=== PATIENT | female | born 1940 | race Caucasian/White ===

== ENCOUNTER 2018-09-20 05:36 | Inpatient (IN) | payer OTHER ==
[2018-09-13 13:00] LABS: HEMATOCRIT 37.3 % (37.0-47.0); HEMOGLOBIN 12.7 gm/dL (12.0-15.0); MCH 30.7 pg (26.0-34.0); MCV 90.3 fL (80.0-100.0); RBC 4.14 mil/uL (4.20-5.00); RDW 12.7 % (10.5-14.5); WBC 6.3 thou/uL (4.0-11.0)
[2018-09-13 13:11] LABS: URINE BILIRUBIN NEGATIVE (Negative); URINE BLOOD NEGATIVE (Negative); URINE CLARITY CLEAR; URINE COLOR YELLOW; URINE GLUCOSE-RANDOM* NEGATIVE (Negative); URINE KETONES NEGATIVE (Negative); URINE LEUKOCYTES-REFLEX NEGATIVE (Negative); URINE NITRITE-REFLEX NEGATIVE (Negative); URINE PROTEIN (DIPSTICK) NEGATIVE (Negative); URINE UROBILINOGEN 0.2 E.U./dl (0.2-1.0)
[2018-09-13 13:16] LABS: ALBUMIN 4.3 g/dL (3.4-5.0); CALCIUM 9.8 mg/dL (8.5-10.1); CREATININE 1.2 mg/dL (0.6-1.0); POTASSIUM 5.2 mmol/L (3.5-5.1)
[~2018-09-20] VITALS: Ht 144.8 cm; Wt 54.4 kg
--- NOTE | ~2018-09-20 | O ---
[facility] [place] [address] OPERATIVE REPORT Name: CLAUDE RUIZ Room #: 422-P ADM IN M.R.#: [id number] Admission: 09/20/18 Attend Phys: Dominic Marshall MD Discharge: Date of : 36 Report #: [id number] THIS REPORT FOR: //name// CC: Dominic Howell DATE OF SERVICE: 09/20/2018 PREOPERATIVE DIAGNOSIS: End-stage degenerative osteoarthritis, right hip. POSTOPERATIVE DIAGNOSIS: End-stage degenerative osteoarthritis, right hip. PROCEDURE: Right total hip arthroplasty. SURGEON: Dominic Marshall M.D. INDICATIONS: This slender, fit, active 78-year-old female complains of severe progressive right hip pain and limited range of motion. Clinical exam and x-rays confirm rather severe end-stage degenerative osteoarthritis. She has elected to go ahead with total hip arthroplasty. DESCRIPTION OF PROCEDURE: The patient was taken to the operating room, where she was placed under general anesthesia. Prophylactic intravenous antibiotics were administered. She was turned to the left lateral decubitus position. The right hip and thigh were meticulously prepped and draped. A slightly curving posterolateral skin incision was made centered over the greater trochanter. This was carried through subcutaneous tissues and fascia of the gluteus was split bluntly. The posterior aspect of the hip was visualized. The short external rotators and capsule were taken down and tagged with several #1 Tevdek sutures. The hip was dislocated and marked degenerative change on both the femoral head and acetabulum was noted. A femoral neck osteotomy was performed and the canal was prepared using the [employer]hew hip system. A size 13 press-fit Synergy femoral component trial seemed to fit quite nicely. The trial components were removed and attention directed to the acetabulum. The acetabulum was sequentially reamed, gradually advancing to a 50-mm diameter reamer. A [employer] Nephew size 50 outside diameter StikTite shell was then inserted, placing this in alignment with her true acetabulum, which positioned this in about 45 degrees off of vertical and about 20 degrees of anteversion. The cup seated nicely and appeared to be generally secure. In addition, a screw was placed through the superior hole in the shell, engaging good periacetabular bone. This resulted in excellent additional stability. A polyethylene liner was then inserted with the 20-degree elevated rim placed at about the 10 o'clock posterior position. The [employer] Nephew size 13 Synergy femoral component was [facility] [address] [place] [address] OPERATIVE REPORT Name: CLAUDE RUIZ Room #: 422-P [facility] IN M.R.#: [id number] Admission: 09/20/18 Attend Phys: Dominic Marshall MD Discharge: Date of : 36 Report #: [id number] then impacted into the canal, positioning this in about 15 degrees of anteversion. It seated nicely and appeared to be secure. A trial reduction was performed and the hip seemed best suited for a +4 mm neck length. This resulted in good mormon of leg length, satisfactory alignment and stability, without significant impingement. The size 32 mm head with a +4 mm neck length was selected. This was impacted onto the Rao taper and seated nicely. The hip was reduced. Alignment, range of motion, stability and leg lengths were once again assessed and felt to be satisfactory. The short external rotators were then repaired back to the greater trochanter using several #1 Tevdek sutures passed through small drill holes in the bone. A single Hemovac was left deep to the fascia exiting through a separate stab incision. The fascia was then closed with multiple #1 Vicryl sutures. The subcutaneous tissues were closed with 2-0 Monocryl. The skin was closed with skin thania. A sterile dressing was applied. The patient was awakened and returned to recovery room in good condition. <ELECTRONICALLY SIGNED> By: Dominic Marshall MD 09/21/18 [id number] Dominic Marshall MD /nt
[~2018-09-20 05:36] MED LIST: ASPIR 8181 M1 PO; BIOTIN5000 MC1 PO; CALCIUM 500 +1 EAC5 PO; CBD OIL PO; CENTRUM SILVER1 EAC4 PO; CO Q-10300 MG PO; FISH OIL 1,4001 EACH PO; LOSARTAN POTAS100 MG PO; NORVASC5 MG PO; OMEPRAZOLE 20 M20 M1 PO; SYNTHROID88 MCG PO; TURMERIC500 M2 PO
[2018-09-20 12:36] VITALS: BP 153/68
[2018-09-20 13:06] VITALS: BP 137/62
[2018-09-20 17:20] VITALS: BP 110/46
[2018-09-20 19:48] VITALS: BP 108/47
[2018-09-21 05:00] VITALS: BP 130/53
[2018-09-21 06:01] LABS: HEMATOCRIT 25.7 % (37.0-47.0); HEMOGLOBIN 8.9 gm/dL (12.0-15.0); MCH 31.5 pg (26.0-34.0); MCHC 34.5 g/dL (28.0-37.0); MCV 91.4 fL (80.0-100.0); RBC 2.82 mil/uL (4.20-5.00); RDW 13.2 % (10.5-14.5); WBC 7.8 thou/uL (4.0-11.0)
[2018-09-21 08:00] VITALS: BP 125/56
[2018-09-21 15:08] VITALS: BP 152/72
[2018-09-21 19:58] VITALS: BP 154/70
[2018-09-22 05:11] VITALS: BP 128/47
[2018-09-22 05:41] LABS: HEMATOCRIT 24.2 % (37.0-47.0); HEMOGLOBIN 8.4 gm/dL (12.0-15.0); MCH 31.2 pg (26.0-34.0); MCHC 34.9 g/dL (28.0-37.0); MCV 89.6 fL (80.0-100.0); RBC 2.7 mil/uL (4.20-5.00); RDW 12.8 % (10.5-14.5); WBC 8.4 thou/uL (4.0-11.0)
[2018-09-22 08:12] VITALS: BP 174/65
[2018-09-22 13:04] VITALS: BP 120/45
[2018-09-22 14:35] LABS: CALCIUM 8.1 mg/dL (8.5-10.1); MAGNESIUM 1.5 mg/dL (1.8-2.4); POTASSIUM 4.4 mmol/L (3.5-5.1)
[2018-09-22 17:14] VITALS: BP 120/53
[2018-09-22 20:00] VITALS: BP 127/52
[2018-09-23 04:27] VITALS: BP 118/80
[2018-09-23 05:05] LABS: HEMATOCRIT 22.4 % (37.0-47.0); HEMOGLOBIN 7.8 gm/dL (12.0-15.0); MCH 31.4 pg (26.0-34.0); MCHC 34.8 g/dL (28.0-37.0); MCV 90.2 fL (80.0-100.0); RBC 2.48 mil/uL (4.20-5.00); RDW 12.9 % (10.5-14.5); WBC 5.6 thou/uL (4.0-11.0)
[2018-09-23 08:28] VITALS: BP 114/53
[2018-09-23 08:53] LABS: CALCIUM 8.3 mg/dL (8.5-10.1); POTASSIUM 3.7 mmol/L (3.5-5.1)
[2018-09-23 15:45] VITALS: BP 114/53
[2018-09-23 16:45] VITALS: BP 114/53
[2018-09-23 17:25] VITALS: BP 106/49
[2018-09-24 08:59] VITALS: BP 114/53
== END 2018-09-23 17:35 | disposition home or self-care (01) | DRG 470 ==
LOC: PRE 05:36 → 4E 07:18 → TBA 07:18 → PRE 10:37 → 4E 13:02 → OR 14:12 → EDSTATUS 14:14 → PRE 14:17 → 4E 09-23 17:35
PROVIDERS: Internal Medicine; Orthopaedic Surgery
PROC: 0SR90JZ Replacement of Right Hip Joint with Synthetic Substitute, Open Approach (ICD-10-PCS; principal; 2018-09-20)
DX: M16.11 Unilateral primary osteoarthritis, right hip (principal); E87.1 Hypo-osmolality and hyponatremia; I10 Essential (primary) hypertension; K21.9 Gastro-esophageal reflux disease without esophagitis; E03.9 Hypothyroidism, unspecified; E83.42 Hypomagnesemia; Z90.49 Acquired absence of other specified parts of digestive tract; Z90.710 Acquired absence of both cervix and uterus; Z87.891 Personal history of nicotine dependence; Z79.82 Long term (current) use of aspirin; Z79.899 Other long term (current) drug therapy; Z88.8 Allergy status to other drugs, medicaments and biological substances
CPT/HCPCS: 10783; 50010; 50101; 50382; 50414; 51412; 51771; 53000; 53367; 56521; 56525; 56527; 57095; 57103; 62110; 62900; 70005